=== PATIENT | female | born 1940 | race Caucasian/White ===

== ENCOUNTER 2017-09-21 15:08 | Observation (INO) ==
[2017-09-21] MEDS ORDERED: SALINE FLUSH 10ml SYRINGE IVF PRN (15:19)
--- NOTE | 2017-09-21 15:19 | Emergency Department Report ---
General Adult HPI - General Stated complaint: difficulty breathing Time Seen by Provider: 09/21/17 15:10 Source: patient, EMS Mode of arrival: EMS Limitations: no limitations - History of Present Illness HPI narrative: 77-year-old female presents with a chief complaint of increasing shortness of breath over the past few days. She has a history of CHF and is on chronic home O2 at 2 L by nasal cannula. Patient denies any current pain or discomfort. Patient does not chronic back pain which is consistent with her osteoarthritis. This is only present with movement of the affected area. She has had to increase her oxygen from 2 L by nasal cannula to 3 L by nasal cannula. No other complaints or associated symptoms at this time. She was at home when her symptoms began. Symptoms have been persistent in nature from onset. - Related Data Home Medications Medication Instructions Recorded Confirmed Fluoxetine HCl [Prozac] 40 mg PO DAILY #0 09/26/14 09/21/17 Carvedilol 6.25 mg PO BIDWM #0 04/11/15 09/21/17 Acetaminophen [Acetaminophen Extra 1,000 mg PO Q6H PRN 09/10/17 09/21/17 Strength] Alendronate Sodium 70 mg PO WEEKLY 09/10/17 09/21/17 Amiodarone [Pacerone] 200 mg PO DAILY 09/10/17 09/21/17 Aspirin [Aspirin EC] 81 mg PO DAILY 09/10/17 09/21/17 Bumetanide Tab [Bumex 1 mg Tab] 1 mg PO BID 09/10/17 09/21/17 Calcitriol [Rocaltrol] 0.25 mcg PO TUTHSA 09/10/17 09/21/17 Insulin NPH Hum/Reg Insulin Hm 12 unit SQ WS 09/10/17 09/21/17 [Relion Novolin 70-30 Vial] Insulin NPH Hum/Reg Insulin Hm 27 unit SQ WB 09/10/17 09/21/17 [Relion Novolin 70-30 Vial] Levothyroxine Sodium 75 mcg PO DAILY 09/10/17 09/21/17 Lovastatin [Mevacor] 40 mg PO HS 09/10/17 09/21/17 Warfarin Sodium 5 mg PO HS 09/10/17 09/21/17 Allergies Allergy/AdvReac Type Severity Reaction Status Date / Time morphine Allergy Intermediate HEADACHE Verified 09/21/17 15:39 sulfamethoxazole Allergy Intermediate Verified 09/21/17 15:39 trimethoprim Allergy Intermediate Verified 09/21/17 15:39 Review of Systems Constitutional: Denies: fever, chills Eyes: Denies: eye pain, eye discharge ENT: Denies: ear pain, throat pain Cardiovascular: Denies: chest pain, palpitations Respiratory: Reports: dyspnea. Denies: cough, wheezes Gastrointestinal: Denies: abdominal pain, nausea, vomiting, diarrhea Genitourinary: Denies: urgency, dysuria Musculoskeletal: Denies: back pain, arthralgia Integumentary: Denies: erythema, rash Neurological: Denies: headache, numbness Psychiatric: Denies: anxiety, depression Endocrine: Denies: polydipsia, polyuria Hematological/Lymphatic: Denies: easy bruising, lymphadenopathy Allergic/Immunologic: Denies: facial swelling, urticaria PFSH Patient Stated Medical History Cataracts Yes Glaucoma Yes Congestive Heart Failure Yes Coronary Artery Disease Yes Hypertension Yes Diabetes Mellitus Type 2 Yes Other Yes: mild kidney disease Other Hematologic Yes: on coumadin Osteoarthritis Yes: upper back MRSA Yes: bypass incision site Depression Yes Surgical History: gb, appy, tonsillectomy, CABG, mitral valve replacement, hip surgery, tubal Family History: Reviewed and Noncontributory. - Social History Smoking status: Never smoker Substance use type: does not use Alcohol intake frequency: holidays/special occasions only Housing: house Household members: other (grandson stays with her frequently) Current occupational status: retired Physical Exam - Limitations Limitations: no limitations - General General appearance: alert, in no apparent distress - Normal Exams: Head:: Normocephalic without trauma Eyes:: Pupils are PERRLA w/ EOMI, No scleral icterus, irritation, or foreign bodies noted ENMT:: No facial trauma, nasal exudates, pharyngeal erythema, or exudates are noted Dental: No fractured, loose, or missing teeth noted Neck:: Full range of motion, without adenopathy, JVD, bruits or thyromegaly Chest/Respirations:: Clear all marsh (diminished throughout bilaterally.), with good airflow, and symmetry bilaterally Cardiovascular:: Regular rate and rhythm, without murmur or gallop, Pulses 2+ all extremities, capillary refill, <2 seconds all extremities Abdomen:: Bowel sounds positive, soft, non-tender, non-distended, no hepatosplenomegaly, masses or bruits noted Lymphatic:: No lymphadenopathy, or lymphedema noted Musculoskeletal:: No tenderness, or deformity noted, good range of motion, all extremities Integumentary:: No rashes, hives, or bruising noted, hair and nails, without abnormality Neurological:: Patient is alert, and oriented, cranial nerves, motor/sensory/ cerebellar, exams w/o gross deficits, to observation Psychiatric:: Patient exhibits, appropriate attention, emotion and affect Course Vital Signs Temperature 97.8 F 09/21/17 15:08 Pulse Rate 57 L 09/21/17 15:08 Respiratory Rate 20 09/21/17 15:08 Blood Pressure 174/82 H 09/21/17 15:08 Pulse Oximetry 94 09/21/17 15:08 Temperature 96.5 F L 09/21/17 17:56 Pulse Rate 57 L 09/21/17 17:56 Respiratory Rate 20 09/21/17 17:56 Blood Pressure 151/95 H 09/21/17 17:56 Pulse Oximetry 94 09/21/17 18:11 Medical Decision Making - MDM Narrative Medical decision making narrative: Labs / imaging were discussed in detail with the patient and questions are answered. Patient declined offered analgesic pain medication in the emergency department. She is given aspirin 162 mg by mouth times one. She is reviewed with her blue crabber Dr. Aleksandar James who recommends admission to the hospital to rule out ACS. Dr. James will see the patient in consultation. Patient is in agreement with the current plan of management. She is admitted to the hospital in improved condition. She was admitted to the hospital after discussion with Dr. Fry the hospitalist. No further orders from accepting or consulting physicians who were in agreement with the current plan of management. - Differential Diagnosis ACS, dyspnea, pneumothorax, CHF - Lab Data Result diagrams: 09/21/17 15:37 09/21/17 15:37 Lab Results 09/21/17 09/21/17 09/21/17 Range/Units 15:37 15:37 15:37 WBC 8.4 (4.5-11.0) T/MM3 RBC 4.02 (4.00-5.20) M/MM3 Hgb 12.2 (12-16) GM/DL Hct 39.4 (36-46) % MCV 98.0 (80-100) UM3 MCH 30.3 (26-34) UUG MCHC 31.0 (31-37) GM/DL RDW Std Deviation 48.4 (36.9-50.2) FL Plt Count 241 (130-400) T/MM3 MPV 9.4 (9.4-12.4) UM3 Immature Gran % (Auto) 0.1 (0.0-0.5) % Neut % (Auto) 79.3 H (33-66) % Lymph % (Auto) 12.9 L (23-45) % Antelope % (Auto) 6.3 (0-9.0) % Eos % (Auto) 1.2 (0-4) % Baso % (Auto) 0.2 (0-2) % Neut # (Auto) 6.7 (1.8-7.7) T/MM3 Lymph # (Auto) 1.1 (1-4.8) T/MM3 Antelope # (Auto) 0.5 (0-0.8) T/MM3 Eos # (Auto) 0.1 (0-0.5) T/MM3 Baso # (Auto) 0.0 (0-0.2) T/MM3 Abs Immat Gran (auto) 0.01 (0.00-0.03) T/MM3 INR 4.23 H (0.92-1.18) Turbidity < 20 (0-20) Sodium 147 H (134-144) MEQ/L Potassium 3.7 (3.6-5) MEQ/L Chloride 100 (98-107) MEQ/L Carbon Dioxide 35 H (22-30) MEQ/L Anion Gap 12 (5-15) MEQ/L BUN 20.0 H (7-17) MG/DL Creatinine 1.1 (0.7-1.2) mg/dL GFR Calculation 48 BUN/Creatinine Ratio 18 (6-26) RATIO Glucose 133 H (65-110) MG/DL Calculated Osmolality 287 H (261-280) MOSM/KG Calcium 9.3 (8.4-10.2) MG/DL Total Bilirubin 0.30 (0.20-1.30) MG/DL Icterus Index < 2 (0-7) AST 29 (14-36) U/L ALT 22 (1-35) U/L Alkaline Phosphatase 104 (38-126) U/L Troponin I < 0.012 (0-0.12) ng/ml NT-Pro-B Natriuret Pep 693 H (0-175) pg/mL Total Protein 8.2 (6.3-8.2) g/dL Albumin 4.3 (3.5-5.0) g/dL Globulin 3.9 H (2.4-3.6) G/DL Albumin/Globulin Ratio 1.1 (1.1-2.2) RATIO Specimen Hemolysis < 15 (0-25) - Radiology Data CXR - No acute processes. - EKG Data EKG #1 EKG results narrative: Sinus rhythm. Left bundle branch block. 54 bpm. No STEMI. Similar to . Disposition Clinical Impression: Dyspnea Qualifiers: Dyspnea type: dyspnea on exertion Qualified Code(s): R06.09 - Other forms of dyspnea Disposition: 02 To [facility] Condition: Stable Time of Disposition: 16:40 (Admit. Dr. Fry. ) - Seen By: physician
--- NOTE | 2017-09-21 16:21 | XRay Report ---
Indication: sob PROCEDURE: XR chest 1V: Encounter: Initial Comparison: September 10, 2017 and January 09, 2016 Findings: Lungs are hypoinflated. Persistent linear airspace disease in the left lower lobe could be due to atelectasis or scarring. Bilateral interstitial prominence is again seen. No new focal pneumonia. No pleural effusion or pneumothorax. Cardiac silhouette remains enlarged. Prior CABG and cardiac valve replacement. Impression: Hypoinflation with basilar atelectasis. No obvious acute pneumonia or overt congestive failure. .
[2017-09-21] MEDS ORDERED: ASPIRIN 81 MG CHEWABLE TABLET PO ONE (16:48)
--- NOTE | 2017-09-21 17:48 | History & Physical Report ---
History of Present Illness Date: 09/21/17 Chief complaint: Dyspnea, chest pain HPI: Hilda is a 77 yr old female who was brought to the ER today for evaluation of dyspnea and chest pain. She was seen in the emergency room on 09/10/17 for dyspnea with back pain and coughing. At that time she had had symptoms for approximately 3-4 days. She was discharged with a diagnosis of pleurisy. Over the past 10 days she has continued to worsen. Initially, her baseline oxygen needs were at nighttime only, however, over the past 7 days she has been requiring oxygen 24 hours a day. She did follow-up with primary care yesterday, Dr. Serrano. Daughter states at that time ambulatory oximetry revealed hypoxia with sats 83%, however, patient was discharged home on oxygen. Today she began to have increasing chest pain and was brought back to the emergency room for acute evaluation. CBC is unremarkable, CMP revealed slightly elevated sodium at 147. INR 4.23, patient is chronically anticoagulated for her mechanical mitral valve. Her stay in the emergency room. She remained to Breathing 24 times a minute and required 2 liters of oxygen to maintain adequate saturations. She is afebrile 97.8, blood pressure stable, 157/72. Given her significant coronary artery disease history, accompanied with continued dyspnea and increased oxygen needs. The hospitalist services were contacted and accepted patient. Outpatient observation for further evaluation and treatment. We did discuss advance directives and she does wish to be a Full Code. Review of Systems All systems PM: 10-point ROS was reviewed, no additional remarkable complaints except - Constitutional Constitutional: Present: fatigue - Cardiovascular Cardiovascular: Present: chest pain (with exertion), dyspnea on exertion - Respiratory Respiratory: Present: dyspnea Past Medical History Diabetes Hypertension Congestive heart failure hypothyroidism Chronic kidney disease Mechanical mitral valve Chronic anticoagulation History of cardiac arrest in 2001 at time of bypass ECHO- 10/2014 Cardiomyopathy with EF 35-45% Aortic valve sclerosis Prosthetic valve in mitral value Surgical History: gb, appy, tonsillectomy, CABG x4, Mechanical mitral valve replacement, hip surgery, tubal Family History Updates: Both parents with dementia. Father kidney disease, diabetes. 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 Medications Home Medications Medication Instructions Recorded Confirmed Type Fluoxetine HCl [Prozac] 40 mg PO DAILY #0 09/26/14 09/21/17 History Carvedilol 6.25 mg PO BIDWM #0 04/11/15 09/21/17 History Acetaminophen [Acetaminophen Extra 1,000 mg PO Q6H PRN 09/10/17 09/21/17 History Strength] Alendronate Sodium 70 mg PO WEEKLY 09/10/17 09/21/17 History Amiodarone [Pacerone] 200 mg PO DAILY 09/10/17 09/21/17 History Aspirin [Aspirin EC] 81 mg PO DAILY 09/10/17 09/21/17 History Bumetanide Tab [Bumex 1 mg Tab] 1 mg PO BID 09/10/17 09/21/17 History Calcitriol [Rocaltrol] 0.25 mcg PO TUTHSA 09/10/17 09/21/17 History Insulin NPH Hum/Reg Insulin Hm 12 unit SQ WS 09/10/17 09/21/17 History [Relion Novolin 70-30 Vial] Insulin NPH Hum/Reg Insulin Hm 27 unit SQ WB 09/10/17 09/21/17 History [Relion Novolin 70-30 Vial] Levothyroxine Sodium 75 mcg PO DAILY 09/10/17 09/21/17 History Lovastatin [Mevacor] 40 mg PO HS 09/10/17 09/21/17 History Warfarin Sodium 5 mg PO HS 09/10/17 09/21/17 History Allergies Allergy/AdvReac Type Severity Reaction Status Date / Time morphine Allergy Intermediate HEADACHE Verified 09/21/17 15:39 sulfamethoxazole Allergy Intermediate Verified 09/21/17 15:39 trimethoprim Allergy Intermediate Verified 09/21/17 15:39 Exam Vital Signs: Temperature 97.8 F 09/21/17 15:08 Pulse Rate 51 L 09/21/17 17:00 Respiratory Rate 20 09/21/17 17:00 Blood Pressure 157/72 H 09/21/17 16:36 Pulse Oximetry 99 09/21/17 17:00 Telemetry Rhythm: Sinus Rhythm - Constitutional Present: mild distress, well nourished, well developed - Routine HEENT Exam Eye: Present: EOMI ENT: Present: mucous membranes moist, dentition normal - Routine Respiratory Exam Present: diminished air movement. Absent: wheezes - Routine Cardiovascular Exam Present: RRR, S1, S2 - Routine Abdominal Exam Present: soft, normoactive bowel sounds, non distended. Absent: tenderness - Routine Extremities Exam Present: normal capillary refill - Routine Back/Spine/Pelvis Exam Back/Spine: Present: full ROM - Routine Skin Exam Present: intact, dry, warm - Routine Neurological Exam Present: alert, oriented X3, CN II-XII intact, moving all extremities - Routine Psychiatric Exam Present: normal affect, cooperative Results - Labs CBC & Chem 7: 09/21/17 15:37 09/21/17 15:37 Assessment and Plan (1) Dyspnea Current visit: Yes Status: Acute Assessment and Plan: Impression Dyspnea Chest pain DM CKD A-Fib CHF CAD with Bypass Cardiomyopathy Hypothyroidism Mechanical mitral valve replacement Glaucoma Plan Admit outpatient observation under the care of Dr Fry for dyspnea and chest pain Patient placed on cardiac telemetry, will obtain serial troponins 3. Obtain echocardiogram given history of cardiomyopathy. Consult placed to patients audit specialist, Dr. James Will trial patient on room air to monitor saturations. Patient's baseline is to utilize oxygen at nighttime only. Monitor Accu-Cheks given history of diabetes Consult pharmacy to manage patient's warfarin, goal INR 2.5-3.5. Given mechanical valve replacement SCDs to bilateral lower extremity for DVT prophylaxis Recheck CBC and BMP tomorrow morning to follow blood counts, renal function, electro-lytes. Did discuss advanced directives. Patient and daughters do is patient to be a full code at this time. Will discuss further orders and plan of care with attending, Dr. Fry At time of discharge medical care will return to primary care provider, Dr Serrano DVT Prophylaxis: SCD's, Coumadin Resuscitation Status: Full Code - Time spent with patient Time with patient PN: 50 minutes - Physician Narrative Physician: other (Lala Fry MD) Narrative: Date: 09/21/17 Time: 1824 Patient seen and examined independently. Agree with above documentation, discussed plan of care with Pao. Patient reports 2 weeks of increased shortness of breath and weight gain. She has been wearing oxygen at home during the day instead of just at night. She has been getting short of breath with small amounts of activity. Diminished air exchange on exam, able to speak in complete sentences Plan: trend trop, diuresis, monitor vitals Hospital Course Summary Disclaimer: The visit summary below is not to be considered part of the above Progress Note. Hospital Course: Impression Dyspnea Chest pain DM CKD A-Fib CHF CAD with Bypass Cardiomyopathy Hypothyroidism Mechanical mitral valve replacement Glaucoma Plan Admit outpatient observation under the care of Dr Fry for dyspnea and chest pain Patient placed on cardiac telemetry, will obtain serial troponins 3. Obtain echocardiogram given history of cardiomyopathy. Consult placed to patients audit specialist, Dr. James Will trial patient on room air to monitor saturations. Patient's baseline is to utilize oxygen at nighttime only. Monitor Accu-Cheks given history of diabetes Consult pharmacy to manage patient's warfarin, goal INR 2.5-3.5. Given mechanical valve replacement SCDs to bilateral lower extremity for DVT prophylaxis Recheck CBC and BMP tomorrow morning to follow blood counts, renal function, electro-lytes. Did discuss advanced directives. Patient and daughters do is patient to be a full code at this time. Will discuss further orders and plan of care with attending, Dr. Fry At time of discharge medical care will return to primary care provider, Dr Serrano
[2017-09-21 17:56] VITALS: BMI 31.6
[2017-09-21] MEDS ORDERED: WARFARIN - PHARMACY CONSULT MC ONE (18:12)
--- NOTE | 2017-09-21 18:36 | Pharmacy Consult ---
Pharmacy Consult-Warfarin - Consult Information COUMADIN CONSULT (Initial): Dx: MECHANICAL MITRAL VALVE Baseline INR = 4.23. Will give no Warfarin today. NOTE MADE IN "DOCUMENT" IN EMR. Thank you.
[2017-09-21] MEDS: LEVOTHYROXINE 75 MCG TABLET PO SCH (18:49)
[2017-09-21] MEDS: BUMETANIDE 2.5mg/10ml INJECTION IVP SCH (20:10)
[2017-09-21] MEDS ORDERED: ACETAMINOPHEN 325 MG TABLET PO PRN (20:26)
[2017-09-21] MEDS ORDERED: LOVASTATIN 40 MG TABLET PO SCH (21:00)
[2017-09-21 23:45] VITALS: RESP 18
[2017-09-22] MEDS: LEVOTHYROXINE 75 MCG TABLET PO SCH (05:38)
[2017-09-22] MEDS ORDERED: CARVEDILOL 6.25 MG TABLET PO SCH (08:00)
--- NOTE | 2017-09-22 08:15 | Pharmacy Consult ---
Pharmacy Consult-Warfarin - Laboratory Information 09/22/17 04:02 INR 3.24 H - Consult Information OUMADIN CONSULT (Recurring): 77 yr old female patient admitted for dsypnea and chest pain. Patient is on warfarin for a mechanical mitral valve. Therapeutic INR goal range is 2.5-3.5. Patient's home med dose is 5 mg daily. Patient had her 5 mg dose on 09/20/17 in the evening per home med list. Date INR Dose 09/21/17 4.23 Dose Held 09/22/17 3.24 Will give 3 mg today Thank you. Verito Pitt, PharmD
[2017-09-22] MEDS ORDERED: AMIODARONE 200 MG TABLET PO SCH (09:00)
[2017-09-22] MEDS ORDERED: FLUoxetine 20 MG CAPSULE PO SCH (09:00)
[2017-09-22] MEDS ORDERED: ASPIRIN *EC* 81 MG TABLET PO SCH (09:00)
[2017-09-22] MEDS ORDERED: ACETAMINOPHEN 325 MG TABLET PO PRN (10:06)
[2017-09-22] MEDS ORDERED: DICLOFENAC 1% TOP GEL 100gm TP PRN (10:18)
[2017-09-22] MEDS: BUMETANIDE 2.5mg/10ml INJECTION IVP SCH (10:22)
[2017-09-22] MEDS ORDERED: HYDROCODONE/APAP 5mg/325mg TABLET PO PRN (11:22)
--- NOTE | 2017-09-22 11:27 | Progress Note ---
- Date 09/22/17 Subjective: F/U: dyspnea, left shoulder/back pain, hypernatremia. Hilda is seen while resting in bed and complains of persistent left shoulder/ back pain which is worse with movement and reproducible with palpation. She denies any other complaints or concerns. No chest pain, shortness of breath, abdominal pain, nausea, vomiting or dysuria. Her appetite is stable and urinary output is good. She is breathing easily on room air after diuresis. Labs today revealed improved hypernatremia (Na 145) with mild hypokalemia (K 3.4 ). INR improved and within goal range at 3.24. Serial troponins remained negative (<0.012 - 0.014 - <0.012). Objective Vital signs: Temperature 96.7 F L 09/22/17 08:00 Pulse Rate 60 09/22/17 08:00 Respiratory Rate 18 09/22/17 08:00 Blood Pressure 148/72 H 09/21/17 23:44 Pulse Oximetry 98 09/22/17 08:00 Rhythm: Normal Sinus Rhythm Height/Weight/BMI: Height 4 ft 10 in Weight 148 lb 12.992 oz Body Mass Index 31.6 Comments: Patient resting and appears comfortable in bed. Breathing easily on room air. - Constitutional Present: no acute distress, well nourished, well developed, obese, cooperative - Routine HEENT Exam Head: Present: normocephalic, atraumatic Eye: Present: PERRL. Absent: conjunctival icterus ENT: Present: mucous membranes moist, oropharynx clear - Routine Respiratory Exam Present: CTA bilaterally. Absent: accessory muscle use, respiratory distress, stridor, wheezes - Routine Cardiovascular Exam Present: RRR, S1, S2, murmur - Routine Abdominal Exam Present: soft, normoactive bowel sounds, non distended, non tender - Routine Extremities Exam Present: full ROM, pulses intact - Routine Back/Spine/Pelvis Exam Back/Spine: Present: full ROM, paraspinal tenderness (left upper back / shoulder ). Absent: vertebral tenderness - Routine Musculoskeletal Exam Musculoskeletal: Present: moving extremities well - Routine Skin Exam Present: dry, warm. Absent: jaundice Comments: afebrile. - Routine Neurological Exam Present: alert, oriented X3, CN II-XII intact, moving all extremities, hearing grossly intact, normal speech - Routine Lymphatic Exam Lymphatic: Absent: lymphedema - Routine Psychiatric Exam Present: normal affect, cooperative Results - Labs CBC & Chem 7: 09/22/17 04:02 09/22/17 04:02 Assessment and Plan (1) Dyspnea Current visit: Yes Status: Acute Assessment and Plan: Impression Dyspnea - improving. Chest pain - resolved. Hypernatremia, present on admission - improving. Hyperkalemia, not present on admission. Elevated INR - improving. Left shoulder/back pain. DM. CKD A-Fib CHF CAD with Bypass Cardiomyopathy Hypothyroidism Mechanical mitral valve replacement Glaucoma Plan - 09/22/17. Dyspnea resolved with diuresis. Weight trending down. Continue Bumex 2.5mg IV BID for diuresis. Monitor urinary output and weight. Hypokalemia (K 3.4). Give KCl 40 mEq po now and initiate KCl 10 mEq po BID this evening. Serial troponins negative (<0.012, 0.014, <0.012). Continue to monitor closely on telemetry. Seabreeze and Voltaren gel to left upper back/shoulder for pain most likely musculoskeletal. Obtain echocardiogram given history of cardiomyopathy. Patient instructed to follow up with Dr. James as outpatient as he is unable to see her during her admission and low likelihood of cardiac origin of pain. Blood sugars stable. Continue to monitor closely. Pharmacy to manage patient's warfarin, goal INR 2.5-3.5. Given mechanical valve replacement SCDs to bilateral lower extremity for DVT prophylaxis. Recheck CBC and BMP tomorrow morning to follow blood counts, renal function, electrolytes. Anticipate discharge in near future. Patient currently lives at home alone in [place]. DVT Prophylaxis: SCD's, Coumadin Resuscitation Status: Full Code - Time spent with patient Time with patient PN: 30 minutes - Physician Narrative Physician: other (Dr. Fry.) Narrative: Date: 09/22/17 Time: 1241 Patient seen and examined independently. Agree with above documentation. Discussed with Diana and plan of care directed. Patient feeling better today, not requiring oxygen. Diuresed well with IV bumex. She still reports pain in her back which is reproducible on palpation. Plan to have PT/OT see patient today. Troponins negative. Plan to discharge today with increase in diuretics with follow up and labs on Monday. Hospital Course Summary Disclaimer: The visit summary below is not to be considered part of the above Progress Note. Hospital Course: Impression Dyspnea Chest pain DM CKD A-Fib CHF CAD with Bypass Cardiomyopathy Hypothyroidism Mechanical mitral valve replacement Glaucoma Plan Admit outpatient observation under the care of Dr Fry for dyspnea and chest pain Patient placed on cardiac telemetry, will obtain serial troponins 3. Obtain echocardiogram given history of cardiomyopathy. Consult placed to patients piercing mill operator, Dr. James Will trial patient on room air to monitor saturations. Patient's baseline is to utilize oxygen at nighttime only. Monitor Accu-Cheks given history of diabetes Consult pharmacy to manage patient's warfarin, goal INR 2.5-3.5. Given mechanical valve replacement SCDs to bilateral lower extremity for DVT prophylaxis Recheck CBC and BMP tomorrow morning to follow blood counts, renal function, electro-lytes. Did discuss advanced directives. Patient and daughters do is patient to be a full code at this time. Will discuss further orders and plan of care with attending, Dr. Fry At time of discharge medical care will return to primary care provider, Dr Serrano Plan - 09/22/17. Dyspnea resolved with diuresis. Weight trending down. Continue Bumex 2.5mg IV BID for diuresis. Monitor urinary output and weight. Hypokalemia (K 3.4). Give KCl 40 mEq po now and initiate KCl 10 mEq po BID this evening. Serial troponins negative (<0.012, 0.014, <0.012). Continue to monitor closely on telemetry. Seabreeze and Voltaren gel to left upper back/shoulder for pain most likely musculoskeletal. Obtain echocardiogram given history of cardiomyopathy. Patient instructed to follow up with Dr. James as outpatient as he is unable to see her during her admission and low likelihood of cardiac origin of pain. Blood sugars stable. Continue to monitor closely. Pharmacy to manage patient's warfarin, goal INR 2.5-3.5. Given mechanical valve replacement SCDs to bilateral lower extremity for DVT prophylaxis. Recheck CBC and BMP tomorrow morning to follow blood counts, renal function, electrolytes. Anticipate discharge in near future. Patient currently lives at home alone in [place].
[2017-09-22] MEDS ORDERED: WARFARIN 3 MG TABLET PO SCH (12:00)
--- NOTE | 2017-09-22 14:38 | Discharge Summary ---
Discharge Information Date of admission: 09/21/17 16:56 Anticipated date of discharge: 09/22/17 Attending Physician: Lala Fry MD Primary care physician: Augusto Serrano MD Consults: 09/21/17 17:40 Physician Consult [CONS] Routine Consulting Provider: Jeanna James Reason For Exam: chest pain Ordering Provider has Notified Medical Insurance Claims Processor: Yes - Discharge Diagnosis (1) Dyspnea Status: Acute Dyspnea - improving. Chest pain - resolved. Hypernatremia, present on admission - improving. Hyperkalemia, not present on admission. Elevated INR - improving. Left shoulder/back pain. DM. CKD A-Fib CHF CAD with Bypass Cardiomyopathy Hypothyroidism Mechanical mitral valve replacement Glaucoma - Procedures Procedures: Echocardiogram - - results pending at time of discharge. - Laboratory Labs: 09/22/17 04:02 09/22/17 04:02 - Radiology Radiology: Date of Exam: 09/21/17 Type of Exam(s): XR chest 1V Reason for Exam(s): sob Indication: sob PROCEDURE: XR chest 1V: Encounter: Initial Comparison: September 10, 2017 and January 09, 2016 Findings: Lungs are hypoinflated. Persistent linear airspace disease in the left lower lobe could be due to atelectasis or scarring. Bilateral interstitial prominence is again seen. No new focal pneumonia. No pleural effusion or pneumothorax. Cardiac silhouette remains enlarged. Prior CABG and cardiac valve replacement. Impression: Hypoinflation with basilar atelectasis. No obvious acute pneumonia or overt congestive failure. History of Present Illness HPI: Hilda is a 77 yr old female who was brought to the ER today for evaluation of dyspnea and chest pain. She was seen in the emergency room on 09/10/17 for dyspnea with back pain and coughing. At that time she had had symptoms for approximately 3-4 days. She was discharged with a diagnosis of pleurisy. Over the past 10 days she has continued to worsen. Initially, her baseline oxygen needs were at nighttime only, however, over the past 7 days she has been requiring oxygen 24 hours a day. She did follow-up with primary care yesterday, Dr. Serrano. Daughter states at that time ambulatory oximetry revealed hypoxia with sats 83%, however, patient was discharged home on oxygen. Today she began to have increasing chest pain and was brought back to the emergency room for acute evaluation. CBC is unremarkable, CMP revealed slightly elevated sodium at 147. INR 4.23, patient is chronically anticoagulated for her mechanical mitral valve. Her stay in the emergency room. She remained to Breathing 24 times a minute and required 2 liters of oxygen to maintain adequate saturations. She is afebrile 97.8, blood pressure stable, 157/72. Given her significant coronary artery disease history, accompanied with continued dyspnea and increased oxygen needs. The hospitalist services were contacted and accepted patient. Outpatient observation for further evaluation and treatment. We did discuss advance directives and she does wish to be a Full Code. Objective Vital signs: Temperature 96.7 F L 09/22/17 08:00 Pulse Rate 60 09/22/17 08:00 Respiratory Rate 18 09/22/17 11:39 Blood Pressure 148/72 H 09/21/17 23:44 Pulse Oximetry 98 09/22/17 11:39 Rhythm: Normal Sinus Rhythm Height/Weight/BMI: Height 4 ft 10 in Weight 148 lb 12.992 oz Body Mass Index 31.6 Comments: Resting in bed. - Constitutional Present: no acute distress, well nourished, well developed, cooperative - Routine HEENT Exam Head: Present: normocephalic, atraumatic Eye: Present: PERRL. Absent: conjunctival icterus ENT: Present: mucous membranes moist - Routine Respiratory Exam Present: CTA bilaterally - Routine Cardiovascular Exam Present: RRR, S1, S2 - Routine Abdominal Exam Present: soft, normoactive bowel sounds, non distended, non tender - Routine Extremities Exam Present: full ROM, pulses intact - Routine Back/Spine/Pelvis Exam Back/Spine: Present: full ROM. Absent: vertebral tenderness - Routine Musculoskeletal Exam Musculoskeletal: Present: moving extremities well - Routine Skin Exam Present: dry, warm. Absent: jaundice Comments: Afebrile. - Routine Neurological Exam Present: alert, oriented X3, moving all extremities, normal speech - Routine Lymphatic Exam Lymphatic: Absent: lymphedema - Routine Psychiatric Exam Present: normal affect, cooperative Hospital Course This is a general summary of the patient's hospital course. For more details refer to the complete medical record. Hospital course: Plan - . Admit outpatient observation under the care of Dr Fry for dyspnea and chest pain Patient placed on cardiac telemetry, will obtain serial troponins 3. Obtain echocardiogram given history of cardiomyopathy. Consult placed to patients home health aide, Dr. James Will trial patient on room air to monitor saturations. Patient's baseline is to utilize oxygen at nighttime only. Monitor Accu-Cheks given history of diabetes Consult pharmacy to manage patient's warfarin, goal INR 2.5-3.5. Given mechanical valve replacement SCDs to bilateral lower extremity for DVT prophylaxis Recheck CBC and BMP tomorrow morning to follow blood counts, renal function, electro-lytes. Did discuss advanced directives. Patient and daughters do is patient to be a full code at this time. Will discuss further orders and plan of care with attending, Dr. Fry At time of discharge medical care will return to primary care provider, Dr Serrano Plan - 09/22/17. Dyspnea resolved with diuresis. Weight trending down. Continue Bumex 2.5mg IV BID for diuresis. Monitor urinary output and weight. Hypokalemia (K 3.4). Give KCl 40 mEq po now and initiate KCl 10 mEq po BID this evening. Serial troponins negative (<0.012, 0.014, <0.012). Continue to monitor closely on telemetry. [place] and Voltaren gel to left upper back/shoulder for pain most likely musculoskeletal. Obtain echocardiogram given history of cardiomyopathy. Patient instructed to follow up with Dr. James as outpatient as he is unable to see her during her admission and low likelihood of cardiac origin of pain. Blood sugars stable. Continue to monitor closely. Pharmacy to manage patient's warfarin, goal INR 2.5-3.5. Given mechanical valve replacement SCDs to bilateral lower extremity for DVT prophylaxis. Recheck CBC and BMP tomorrow morning to follow blood counts, renal function, electrolytes. Anticipate discharge in near future. Patient currently lives at home alone in [place]. 14:40 - Patient seen and evaluated by PT/OT who recommended discharge home with home health. Patient is eager for discharge. Will work with case management in discharge plan and anticipate discharge later today. Recommended follow up with PCP next week (09/25/17-09/29/17). Time spent with patient: greater than 35 minutes Resuscitation Status: Full Code Discharge Plan - Discharge Disposition Disposition: Home Health Service *Condition: Stable Reason For Visit (Visit label in EMR): dyspnea,R/O ACS - Discharge Medications *Discharge Medications: New Bumetanide Tab [Bumex 1 mg Tab] 2 mg PO BID #30 tab Diclofenac [Voltaren] 1 applicatio TP QID PRN #1 tube PRN Reason: Pain Potassium Chloride [K-DUR 10 mEq Tablet] 1 tab PO BID #30 tab Acetaminophen [Tylenol] 650 mg PO Q6H PRN tab PRN Reason: Discomfort Continue Alendronate Sodium 70 mg PO WEEKLY Amiodarone [Pacerone] 200 mg PO DAILY Lovastatin [Mevacor] 40 mg PO HS Levothyroxine Sodium 75 mcg PO DAILY Insulin NPH Hum/Reg Insulin Hm [Relion Novolin 70-30 Vial] 12 unit SQ WS Aspirin [Aspirin EC] 81 mg PO DAILY Calcitriol [Rocaltrol] 0.25 mcg PO TUTHSA Fluoxetine HCl [Prozac] 40 mg PO DAILY #0 Carvedilol 6.25 mg PO BIDWM #0 Warfarin Sodium 5 mg PO HS Insulin NPH Hum/Reg Insulin Hm [Relion Novolin 70-30 Vial] 27 unit SQ WB Discontinued Acetaminophen [Acetaminophen Extra Strength] 1,000 mg PO Q6H PRN PRN Reason: Pain Bumetanide Tab [Bumex 1 mg Tab] 1 mg PO BID - Discharge Packet/Instructions *Diet: Cardiac Consistent Carb with low fat, 2 gram sodium and 2000 calories/ day. *Activity: As tolerated. *Pain Management/Treatment: Tylenol 650mg every 4-6 hours as needed. *Wound Care: None. Additional Instructions: Follow up with Dr. James on 09/25/17, at 1:30 at his office. Take increased dose of Bumex (2mg) twice a day until follow up with Dr. James. Have labs drawn as outpatient at [facility] prior to seeing Dr. James on 09/25/17. *Expected Signs/Symptoms: Gradual improvement. *Notify Physician if: fever >100.8, increased shortness of breath, chest pain, weight gain more than 5 pounds in a week, change or worsening, additional questions or concerns. *During Business Hours Contact: Dr. Serrano at [phone] James at [phone]. *After Business Hours Contact: the web production assistant physician for Dr. Serrano at . *Pending Lab/Results: No Pending Lab - Referrals/Follow Up *Referrals/Follow Up: Jeanna James MD [Physician] - 09/25/17 1:30 pm (appointment on 09/25/17 at 1:30 in his office.) Augusto Serrano MD [Family Provider] - 10/03/17 11:30 am - Patient Handouts Patient Handouts: Heart Failure (DC) - Dismissal Complete Discharge Instructions are:: Complete Physician Narrative - Narrative Attestation Narrative: Date: 09/22/17 Time: 1519 Agree with above. Plan for discharge with home health.
[2017-09-22 15:22] VITALS: BP 146/88; PULSE 64; TEMP 96.6; O2SAT 92
[2017-09-22] MEDS ORDERED: IBUPROFEN 200 MG TABLET PO PRN (15:44)
--- NOTE | 2017-09-26 07:51 | Echocardiogram ---
DATE 09/21/2017 INDICATION Dyspnea. Chest pain. TECHNICAL QUALITY Technically good 2-D, M-mode, Doppler echocardiographic images were submitted for interpretation. FINDINGS 1. CARDIAC CHAMBERS. All cardiac chamber measurements are normal except the left ventricle is enlarged, measured 5.96 cm. Left atrium measured 3.8 cm which is borderline enlarged. RV size and contractility appeared normal. Aortic root diameter is normal. 2. LEFT VENTRICLE. Wall thickness is normal. Wall motion analysis is abnormal with inferior wall hypokinesis present. Ejection fraction is estimated at 55%. Diastolic function assessment shows a normal E/A ratio at 1.1. MVDP measures 401 milliseconds. 3. VALVES. Aortic valve exhibits mild sclerosis. Valve opening appears preserved. Mitral valve exhibits a mechanical prosthesis. Leaflets are not very well seen, but no obvious structural or movement abnormality is identified. Tricuspid valve structure and motion appear normal. Normal valve excursion. 4. DOPPLER. Shows mild aortic regurgitation. Maximum and mean pressure gradient across the mechanical mitral valve are 12 and 4 mmHg, in order. Trace tricuspid regurgitation with estimated systolic PA pressure of 33 mmHg. Peak flow velocity at the aortic valve level of 2.1 m/sec. Peak and mean pressure gradient of 18 and 10 mmHg with an aortic valve area calculated based on a 2.0 cm LVOT diameter, ANDRESSA 1.6 cm2, consistent with mild aortic stenosis. 5. No evidence of pericardial effusion, intracardiac masses, thrombi, vegetations or shunt. Central venous pressure is normal. Systolic PA pressure estimated at 33 mmHg. IMPRESSION 1. LV enlargement. 2. Preserved LV systolic function, EF of 55%, with inferior/posterior wall hypokinesis. 3. Sclerotic aortic valve with mild aortic stenosis and mild aortic insufficiency. 4. Mechanical mitral valve with preserved function as described above and very mild mitral regurgitation. 5. Normal central venous pressure and high-normal systolic PA pressure of 33 mmHg as described above. 6. Left atrial size is top-normal, nevertheless increased LA/aorta ratio suggestive of a mild enlargement. 7. Preserved function of a mechanical mitral valve. MTDD
== END 2017-09-22 18:35 | disposition home health service (06) ==
LOC: MED 15:08 → ED 15:08 → MED 17:40
PROVIDERS: ADMIT Pediatrics; ATTEND Pediatrics